=== PATIENT | male | born 1980 | race Caucasian/White ===

== ENCOUNTER → 2018-08-08 | Outpatient (CLI) | payer OTHER ==
--- NOTE | 2018-08-15 22:51 | SLEEP ---
[address] [address] SLEEP STUDY REPORT Name: MELA PEREIRA [id number] Admission: 08/08/18 Attend Phys: Alejandra Moore DO Discharge: Date of : 82 Report #: [id number] THIS REPORT FOR: //name// CC: Alejandra Moore This study has been reviewed in its entirety by a board certified sleep specialist DATE OF SERVICE: 08/09/2018 STUDY: Home sleep study. The patient is a 37-year-old who weighs 177 pounds and is 5 feet 7 inches tall with a BMI of 27.8. The patient's [place] score was 18. The patient underwent home sleep study performed by [facility]. Total recording time was 324 minutes. During the night study, the patient had 6 obstructive apneas, 3 central apneas, no mixed apneas and 16 hypopneas. The patient's apnea hypopnea index was 4.6 per hour with a supine index of 4.6 per hour as well. Nocturnal oximetry study showed that the signal dropped out on most of the portion of the night and as a result a reliable oximetry data was not available, which may have underestimated the sleep apnea. The patient's average oxygen saturation was 94% with the lowest of 83%. Mean heart rate was 57 beats per minute with a maximum of 89 beats per minute. IMPRESSION: No clinically significant sleep disordered breathing. The patient's apnea-hypopnea index for the night was 4.6 per hour. Nocturnal oximetry signal dropped out on the night of the study and the data is unreliable and severity of sleep apnea may have been underestimated on the home sleep study. RECOMMENDATIONS: 1. As discussed above, the home sleep study data is not reliable. If clinical suspicion for sleep apnea is high, then consider doing in-lab polysomnogram. 2. Weight loss is advised. 3. Avoid [employer] depressants. <ELECTRONICALLY SIGNED> By: Nilo Huston MD 08/15/18 2251 [id number] Huston MD /nt
== END ==
LOC: M.SLEEPLAB 09:00 → EDBD 09:30 → M.SLEEPLAB 09:30
DX: Z30.09 Encounter for other general counseling and advice on contraception (principal); G47.30 Sleep apnea, unspecified; F41.9 Anxiety disorder, unspecified; F41.1 Generalized anxiety disorder; R63.4 Abnormal weight loss

== ENCOUNTER → 2018-09-16 | Outpatient (CLI) | payer OTHER ==
--- NOTE | 2018-09-17 13:04 | SLEEP ---
[address] [address] SLEEP STUDY REPORT Name: MELA PEREIRA Caleb Room: [facility]#: [id number] Admission: 09/16/18 Attend Phys: Alejandra Moore DO Discharge: Date of : 82 Report #: [id number] THIS REPORT FOR: //name// CC: ALEJANDRA Hay This study has been reviewed in its entirety by a board certified sleep specialist DATE OF SERVICE: 09/16/2018 ATTENDING PHYSICIAN: Dr. Alejandra Moore. The patient is a 37-year-old who weighs 180 pounds with a BMI of 28.2. The patient's [place] score was 12. The patient is on citalopram and alprazolam as well. The patient had a home sleep study, which did not show any significant sleep disordered breathing. As a result, the patient was referred back for in-lab sleep study to better assess for any sleep disorder. During the night of study, the patient spent 361 minutes in bed and slept for 201 minutes with a sleep efficiency of 56%. Sleep latency was 34.5 minutes with an absent REM sleep. Overall, sleep architecture showed normal stage 1 sleep, increased stage 2 sleep, increased slow wave and absent REM sleep. During the night of study, the patient had no apneas and 9 hypopneas. The patient's apnea-hypopnea index for the entire night was 2.7 per hour with a supine AHI of 3 per hour. No REM sleep was observed. EKG monitoring revealed an average heart rate of 62 beats per minute with a maximum of 83 beats per minute. No sustained arrhythmias observed. Mild PLMS were seen at an index of 11 per hour and 1.5 per hour caused EEG arousals. Nocturnal oximetry study revealed an average oxygen saturation of 95% with a lowest of 84%. Only 0.5 minutes were spent at an oxygen saturation of less than 89%. Due to low AHI, the patient did not meet the split night criteria for CPAP initiation. IMPRESSION: 1. No clinically significant sleep disorder breathing. The patient's AHI for the entire night was 2.7 per hour. REM sleep, however, was not noted. 2. No clinically significant nocturnal hypoxia. 3. Mild PLMS without [place] [address] SLEEP STUDY REPORT Name: MELA PEREIRA Room: [facility]#: [id number] Admission: 09/16/18 Attend Phys: Alejandra Moore DO Discharge: Date of : 82 Report #: [id number] RECOMMENDATIONS: 1. The patient did not meet the criteria for CPAP initiation. The patient also had a previous home sleep study, which did not show any significant sleep disordered breathing and in-lab sleep study shows the same findings. 2. The patient's subjective hypersomnia could be related to other etiologies. The effect of medications should be considered. 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 Consider treatment of insomnia to improve sleep efficiency. Minimize sedative medications. 3. Weight loss is advised. 4. Avoid [employer] depressants. 5. Caution regarding driving until the patient's hypersomnia is resolved with above recommendations. <ELECTRONICALLY SIGNED> By: Nilo Huston MD 09/17/18 1304 1004 [id number] Keven Huston MD /nt
== END ==
LOC: M.SLEEPLAB 20:47
DX: G47.61 Periodic limb movement disorder (principal); G47.39 Other sleep apnea